=== PATIENT | male | born 1985 | race Caucasian/White ===

== ENCOUNTER 2016-05-24 11:17 | Emergency (ER) | payer OTHER ==
[2016-05-24 11:24] VITALS: BP 145/76; PULSE 73; TEMP 98; BMI 37.1
[2016-05-24] MEDS ORDERED: IBUPROFEN 600 MG TABLET (FP) PO ONE ×2 (11:51→11:55)
--- NOTE | 2016-05-24 11:56 | PDOC ---
History of Present Illness - General Chief Complaint: Injury Stated Complaint: INJURY TO LEFT MIDDLE FINGER Time Seen by Provider: 05/24/16 11:46 History Source: Patient Exam Limitations: No Limitations - History of Present Illness Initial Comments: 05/24/16 22:09 My Chief Complaint: Left third finger pain bend all the way back History of present illness: Pt. Is a 31-year-old male with a history of hyperlipidemia and GERD here today complaining of left middle finger pain when something he was holding at work started to fall causing his finger to bend backwards hyperextending it. Patient reports having pain in his left metacarpal joint and proximal aspect of his left middle finger. Patient does not have any noticeable swelling. Patient has slightly decreased range of motion at MCP joint. No gross deformity of hand noted. He reports that pain currently is an 8 out of 10 aching in nature. 05/24/16 22:12 Occurred: reports: just prior to arrival Severity: reports: moderate Upper Extremity Pain Location: left: 3rd finger (left MCP/PIP jt ) Method of Injury: reports: other (hyperflexed backwards ) Modifying Factors: improves with: None Extremity Pain Location - Extremity Pain Location Extremity Pain Locations: left: 3rd finger (mcp jt, pip jt ) Past History - Past Medical History Allergies/Adverse Reactions: Allergies Allergy/AdvReac Type Severity Reaction Status Date / Time No Known Allergies Allergy Verified 05/24/16 11:24 Home Medications: Ambulatory Orders Nebivolol [Bystolic -] 10 mg PO DAILY 04/28/12 Ibuprofen [Motrin -] 600 mg PO Q6H PRN #18 tablet 05/24/16 Anemia: No GI Disorders: Yes (GERD) Hypercholesterolemia: Yes Suicide Attempt (Hx): No - Surgical History Appendectomy: Yes - Immunization History Td Vaccination: Yes Immunization Up to Date: Yes - Psycho/Social/Smoking Cessation Hx Anxiety: Yes Suicidal Ideation: No Smoking Status: Yes Smoking History: Current every day smoker Years of Tobacco Use: 14 Have you smoked in the past 12 months: Yes Number of Cigarettes Smoked Daily: 20 Information on smoking cessation initiated: No Drug/Substance Use Hx: No Substance Use Type: None Review of Systems - Review of Systems Able to Perform ROS?: Yes Constitutional: No: Symptoms Reported HEENTM: No: Symptoms Reported Respiratory: No: Symptoms reported Cardiac (ROS): No: Symptoms Reported ABD/GI: No: Symptoms Reported Musculoskeletal: Yes: Joint Pain (left middle mcp jt, pip jt ). No: Joint Swelling Integumentary: No: Symptoms Reported Neurological: No: Symptoms reported *Physical Exam - Vital Signs Last Vital Signs Temp Pulse Resp BP Pulse Ox 98 F 73 18 145/76 98 05/24/16 11:21 05/24/16 11:21 05/24/16 11:21 05/24/16 11:21 05/24/16 11:21 - Physical Exam General Appearance: Yes: Appropriately Dressed Comments:: 05/24/16 11:56 05/24/16 11:56 left radial pulse 4 + Extremity: positive: Normal Capillary Refill, Normal Inspection, Tender (left middle mcp jt, pip jt ). negative: Normal Range of Motion, Swelling Integumentary: positive: Normal Color Neurologic: positive: Alert, Normal Response, Respond to painful stimul (left middle finger) Procedures - Consent Consent obtained: From Patient - Splinting Splint Location: Left: Finger (THIRD) Medical Decision Making - Medical Decision Making 05/24/16 22:13 Pt. Is a 31-year-old male with a history of hyperlipidemia and GERD here today complaining of left middle finger pain when something he was holding at work started to fall causing his finger to bend backwards hyperextending it. Patient reports having pain in his left metacarpal joint and proximal aspect of his left middle finger. Patient does not have any noticeable swelling. Patient has slightly decreased range of motion at MCP joint. No gross deformity of hand noted. He reports that pain currently is an 8 out of 10 aching in nature. 05/24/16 22:22 Left middle finger rule out fracture PLAN: xray left middle finger negative ibuprofen 600 mg po now than every 6 hrs prn finger splint ortho follow *DC/Admit/Observation/Transfer Diagnosis at time of Disposition: Strain of finger of left hand - Discharge Dispostion Disposition: HOME Condition at time of disposition: Stable - Prescriptions Prescriptions: Ibuprofen [Motrin -] 600 mg PO Q6H PRN #18 tablet PRN Reason: Pain - Referrals Referrals: Sebastien West MD [Staff Physician] - - Patient Instructions Additional Instructions: FOLLOW UP WITH Orthopedist as soon as possible for further evaluation Keep splint on during the day may take off and gently flex finger may take off at night Apply ice to left third finger every hour for 10 minutes while awake today and tomorrow Return to emergency room if symptoms worsen any numbness of finger Patient voiced understanding of discharge instructions and all questions were answered - Post Discharge Activity Work/School Note: Back to Work
== END 2016-05-24 12:32 | disposition home or self-care (01) ==
LOC: JERFT 11:17
PROC: 2W3KX1Z Immobilization of Left Finger using Splint (ICD-10-PCS; principal; 2016-05-24)
DX: S63.693A Other sprain of left middle finger, initial encounter (principal); X50.0XXA Overexertion from strenuous movement or load, initial encounter; X50.9XXA Other and unspecified overexertion or strenuous movements or postures, initial encounter; Y93.89 Activity, other specified; Y92.63 Factory as the place of occurrence of the external cause; Y99.0 Civilian activity done for income or pay; E78.5 Hyperlipidemia, unspecified; K21.9 Gastro-esophageal reflux disease without esophagitis
CPT/HCPCS: 73140-TC-LT; 99281-25

== ENCOUNTER 2016-08-22 20:50 | Emergency (ER) | payer SELFPAY ==
[2016-08-22 21:02] VITALS: BMI 35.6
--- NOTE | 2016-08-22 21:23 | PDOC ---
History of Present Illness - General History Source: Patient Exam Limitations: No Limitations - History of Present Illness Initial Comments: 08/22/16 21:32 The patient is a 31 year old male with significant past medical history of hypertension (no medications), hyperlipidemia (no medications), gerd who presents to the ED for 2 days of left upper quadrant pain. Patient describes pain as crampy and sharp. States he has a history of etoh use and normally after consuming a lot of alcohol he develops similar symptoms. States he drank a lot of alcohol 3 days ago and the following day he developed left upper quadrant pain. He also admits to drinking some alcohol today as well. Patient reports associated nausea and one episode of vomiting prior to arrival. Denies diarrhea. His last meal was earlier today. The patient denies fever, chills, cough, SOB, chest pain, and palpitations. Allergies: NKDA Social History: Current smoker (ppd), etoh use. Past Surgical History: appendectomy PCP: Dr. Tata De Dios <Maryam Cheng - Last Filed: 08/22/16 21:32> - General History Source: Patient <[email or web address] [email or web address] - Last Filed: 08/23/16 00:17> - General Chief Complaint: Pain, Acute Stated Complaint: ABDOMINAL PAIN Time Seen by Provider: 08/22/16 21:06 Past History <Maryam Cheng - Last Filed: 08/22/16 21:32> - Past Medical History Anemia: No GI Disorders: Yes (GERD) Hypercholesterolemia: Yes Suicide Attempt (Hx): No - Surgical History Appendectomy: Yes - Immunization History Td Vaccination: Yes Immunization Up to Date: Yes - Psycho/Social/Smoking Cessation Hx Anxiety: Yes Suicidal Ideation: No Smoking Status: Yes Smoking History: Current some day smoker Years of Tobacco Use: 14 Have you smoked in the past 12 months: Yes Number of Cigarettes Smoked Daily: 20 Information on smoking cessation initiated: No Drug/Substance Use Hx: No Substance Use Type: None <Thiago Castillo - Last Filed: 08/23/16 00:17> - Past Medical History Allergies/Adverse Reactions: Allergies Allergy/AdvReac Type Severity Reaction Status Date / Time No Known Allergies Allergy Verified 08/22/16 20:58 Home Medications: Ambulatory Orders Nebivolol [Bystolic -] 10 mg PO DAILY 02/25/13 Sucralfate [Carafate -] 1 gm PO QID #30 tablet 08/23/16 Review of Systems - Review of Systems Able to Perform ROS?: Yes Comments:: 08/22/16 21:32 CONSTITUTIONAL: Absent: fever, no chills, no fatigue EYES: Absent: visual changes ENT: Absent: ear pain, no sore throat CARDIOVASCULAR: Absent: chest pain, no palpitations RESPIRATORY: Absent: cough, no SOB GI: +left upper quadrant pain, nausea, vomiting Absent: no constipation, no diarrhea GENITOURINARY: Absent: dysuria, no frequency, no hematuria MUSCULOSKELETAL: Absent: back pain, no arthralgia, no myalgia SKIN: Absent: rash NEURO: Absent: headache <Maryam Cheng - Last Filed: 08/22/16 21:32> *Physical Exam - Vital Signs Last Vital Signs Temp Pulse Resp BP Pulse Ox 98.4 F 110 H 22 144/80 95 08/22/16 20:57 08/22/16 20:57 08/22/16 20:57 08/22/16 20:57 08/22/16 20:57 - Physical Exam Comments: 08/22/16 21:32 GENERAL: Well-appearing, well-nourished. No apparent distress. HEENT: Normocephalic, atraumatic. PERRL, EOM intact. CARDIOVASCULAR: Normal S1, S2. Regular rate and rhythm. PULMONARY: Clear to auscultation bilaterally. ABDOMEN: Soft, non-distended, moderate left upper quadrant tenderness. No rebound or guarding. EXTREMITIES: Normal ROM in all four extremities. No gross deformities. SKIN: Warm, dry. No rash NEUROLOGICAL: No focal neurological deficits. <Maryam Cheng - Last Filed: 08/22/16 21:32> - Vital Signs Last Vital Signs Temp Pulse Resp BP Pulse Ox 98.4 F 110 H 22 144/80 95 08/22/16 20:57 08/22/16 20:57 08/22/16 20:57 08/22/16 20:57 08/22/16 20:57 <Thiago Castillo - Last Filed: 08/23/16 00:17> ED Treatment Course - LABORATORY CBC & Chemistry Diagram: 08/22/16 22:00 08/22/16 22:00 <Thiago Castillo - Last Filed: 08/23/16 00:17> Medical Decision Making - Medical Decision Making 08/23/16 00:14 Dr. Castillo: The scribe's documentation has been prepared under my direction and personally reviewed by me in its entirery. I confirm that the note above accurately reflects all work, treatment, procedures, and medical decision making performed by me. <Thiago Castillo - Last Filed: 08/23/16 00:17> *DC/Admit/Observation/Transfer - Attestations Scribe Attestion: 08/22/16 21:32 Documentation prepared by Maryam Cheng, acting as esthetician and manager medical spa for Thiago Castillo MD/DO. <Maryam Cheng - Last Filed: 08/22/16 21:32> - Discharge Dispostion Admit: No <Thiago Castillo - Last Filed: 08/23/16 00:17> Diagnosis at time of Disposition: Abdominal pain Qualifiers: Abdominal location: left upper quadrant Qualified Code(s): R10.12 - Left upper quadrant pain GERD (gastroesophageal reflux disease) Qualifiers: Esophagitis presence: esophagitis presence not specified Qualified Code(s): K21.9 - Gastro-esophageal reflux disease without esophagitis - Discharge Dispostion Disposition: HOME Condition at time of disposition: Stable - Prescriptions Prescriptions: Sucralfate [Carafate -] 1 gm PO QID #30 tablet - Referrals Referrals: Tata De Dios [Primary Care Provider] - Kehinde Chavez MD [Staff Physician] - - Patient Instructions Printed Discharge Instructions: GERD Diet, DI for Gastroesophageal Reflux Disease (GERD) Additional Instructions: avoid excessive alcohol and greasy/ spicy foods. Take medication as directed. Return if any problems. - Post Discharge Activity Work/School Note: Back to Work
[2016-08-22] MEDS ORDERED: ONDANSETRON 4 MG/2 ML VIAL IVPUSH STA (21:25)
[2016-08-22] MEDS ORDERED: PANTOPRAZOLE SODIUM 40 MG in SODIUM CHLORIDE 100 ML IVPB ONE (21:25)
[2016-08-22] MEDS ORDERED: SODIUM CHLORIDE 1,000 ML IV STA (21:25)
[2016-08-22] MEDS ORDERED: PANTOPRAZOLE SODIUM 40 MG VIAL ONE (21:59)
[2016-08-22] MEDS ORDERED: ONDANSETRON 4 MG/2 ML VIAL ONE (21:59)
[2016-08-22 22:03] LABS: BASOPHIL 0.6 % (0-2.0); EOSINOPHIL 2.5 % (0-4.5); MCH 27.3 pg (25.7-33.7); MCHC 32.8 g/dl (32.0-35.9); MEAN CELL VOLUME 83.3 fl (80-96); MEAN PLT VOLUME 9.9 fl (7.5-11.1); NEUTROPHILS 73.8 % (42.8-82.8); PLATELET COUNT 154 K/MM3 (134-434); RDW 14.2 % (11.9-15.9); WHITE BLOOD COUNT 9.9 K/mm3 (4.0-10.0)
[2016-08-22 22:58] LABS: ALBUMIN 3.7 g/dl (3.4-5.0); ANION GAP 7 (8-16); CALCIUM 8.7 mg/dL (8.5-10.1); CO2 29 mmol/L (21-32); CREATININE 0.8 mg/dL (0.7-1.3); GLUCOSE,RANDOM 104 mg/dL (74-106); MAGNESIUM 2.2 mg/dL (1.8-2.4); SGOT/AST 40 U/L (15-37); SGPT/ALT 62 U/L (12-78)
[2016-08-22 22:59] LABS: ALK PHOS 91 U/L (45-117); BILIRUBIN,TOTAL 0.9 mg/dL (0.2-1.0); TOT PROT 7.1 g/dl (6.4-8.2)
[2016-08-22] MEDS ORDERED: SUCRALFATE 1 GM TABLET (FP) PO STA (23:23)
[2016-08-22] MEDS ORDERED: SUCRALFATE 1 GM TABLET (FP) ONE (23:39)
[2016-08-23 00:27] LABS: ACETONE SERUM NEGATIVE (NEGATIVE)
[2016-08-23 00:32] VITALS: BP 132/78; PULSE 88; TEMP 98.5
== END 2016-08-23 00:25 | disposition home or self-care (01) ==
LOC: JER 20:50
PROC: 3E033GC Introduction of Other Therapeutic Substance into Peripheral Vein, Percutaneous Approach (ICD-10-PCS; principal; 2016-08-22)
DX: R10.12 Left upper quadrant pain (principal); K21.9 Gastro-esophageal reflux disease without esophagitis; E78.00 Pure hypercholesterolemia, unspecified; F17.210 Nicotine dependence, cigarettes, uncomplicated
CPT/HCPCS: 80053; 82009; 83690; 83735; 85025; 99283-25

== ENCOUNTER 2017-01-30 09:34 | Emergency (ER) | payer SELFPAY ==
[2017-01-30 09:47] VITALS: BMI 35.5
[2017-01-30] MEDS ORDERED: MAG HYDROX/AL HYDROX/SIMETH 30 ML UNIT-DOSE CUP PO ONE (10:44)
--- NOTE | 2017-01-30 10:47 | PDOC ---
History of Present Illness - General Chief Complaint: Chest Pain Stated Complaint: CHEST PAIN Time Seen by Provider: 01/30/17 10:07 - History of Present Illness Initial Comments: 01/30/17 11:03 "31 year old male, with significant past medical history of HTN, HLD, and GERD, who presents to the emergency department complaining of intermittent left sided chest pain that started at 8:00am this morning, approximately 3 hours ago. The pain is not exertional, no pleuritic. He does not know of any exacerbating or alleviating factors and states that the pain comes and goes randomly. The patient notes that he has GERD and experiences epigastric pain and nausea every morning. Pt denies recent travel/immobilization. No leg swelling. No h/o DVT/ PE. Pt endorses daily alcohol use. Denies any recent cocaine use. Denies fever, chills. Denies leg swelling. Allergies: NKDA Surgical hx: appendectomy Social hx: Tobacco use (2ppd). Daily alcohol use. Marijuana use. Reports occasional cocaine use, but not recent. PCP: Dr. 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 " Past History - Past Medical History Allergies/Adverse Reactions: Allergies Allergy/AdvReac Type Severity Reaction Status Date / Time No Known Allergies Allergy Verified 01/30/17 09:47 Home Medications: Ambulatory Orders NK [No Known Home Medication] 01/30/17 Anemia: No COPD: No GI Disorders: Yes (GERD) Hypercholesterolemia: Yes - Surgical History Appendectomy: Yes - Immunization History Td Vaccination: Yes Immunization Up to Date: Yes - Suicide/Smoking/Psychosocial Hx Smoking Status: Yes Smoking History: Current every day smoker Years of Tobacco Use: 14 Have you smoked in the past 12 months: Yes Number of Cigarettes Smoked Daily: 15 Information on smoking cessation initiated: Yes 'Breaking Loose' booklet given: 01/30/17 Hx Alcohol Use: Yes (SOCIAL) Drug/Substance Use Hx: No Substance Use Type: None Review of Systems - Review of Systems Comments:: 01/30/17 11:05 "GENERAL/CONSTITUTIONAL: No fever or chills. No weakness. HEAD, EYES, EARS, NOSE AND THROAT: No change in vision. No ear pain or discharge. No sore throat. CARDIOVASCULAR: +CP, no SOB RESPIRATORY: No cough, wheezing, or hemoptysis. GASTROINTESTINAL: No nausea, vomiting, diarrhea or constipation. GENITOURINARY: No dysuria, frequency, or change in urination. MUSCULOSKELETAL: No joint or muscle swelling or pain. No neck or back pain. SKIN: No rash NEUROLOGIC: No headache, vertigo, loss of consciousness, or change in strength/ sensation. ENDOCRINE: No increased thirst. No abnormal weight change. HEMATOLOGIC/LYMPHATIC: No anemia, easy bleeding, or history of blood clots. ALLERGIC/IMMUNOLOGIC: No hives or skin allergy. " *Physical Exam - Vital Signs Last Vital Signs Temp Pulse Resp BP Pulse Ox 98.5 F 66 19 120/81 99 01/30/17 13:56 01/30/17 13:56 01/30/17 13:56 01/30/17 13:56 01/30/17 09:43 - Physical Exam Comments: 01/30/17 11:05 "GENERAL: Awake, alert, and fully oriented, in no acute distress HEAD: No signs of trauma EYES: PERRLA, EOMI, sclera anicteric, conjunctiva clear ENT: Auricles normal inspection, hearing grossly normal, nares patent, oropharynx clear without exudates. Moist mucosa NECK: Nontender, no stepoffs, Normal ROM, supple, no lymphadenopathy, JVD, or masses LUNGS: Breath sounds equal, clear to auscultation bilaterally. No wheezes, and no crackles HEART: Regular rate and rhythm, normal S1 and S2, no murmurs, rubs or gallops ABDOMEN: Soft, nontender, normoactive bowel sounds. No guarding, no rebound. No masses EXTREMITIES: Normal range of motion, no edema. No clubbing or cyanosis. No cords, erythema, or tenderness NEUROLOGICAL: Cranial nerves II through XII intact. 5/5 strength and sensation in all extremities, Normal speech, normal gait SKIN: Warm, Dry, normal turgor, no rashes or lesions noted. " Heart Score/ECG Review - History History: Slightly suspicious - Electrocardiogram EKG: Normal - Age Age: </= 45 - Risk Factors Risk Factors Heart Score: Yes Hx Hypercholesterolemia, Yes Hx Hypertension Based on the list above the patient has:: 1-2 risk factors - Troponin Troponin: </= normal limit - Score Heart Score - Total: 1 - ECG Impressions Comment:: 01/30/17 11:16 NSR, no TAMEKA/STDs, no TWIs, axis wnl, intervals wnl ED Treatment Course - LABORATORY CBC & Chemistry Diagram: 01/30/17 11:06 01/30/17 12:02 - ADDITIONAL ORDERS Additional order review: Laboratory Results 01/30/17 01/30/17 01/30/17 12:02 11:06 11:06 Sodium 141 Cancelled Potassium 4.2 Cancelled Chloride 107 Cancelled Carbon Dioxide 26 Cancelled Anion Gap 8 Cancelled BUN 12 Cancelled Creatinine 1.1 D Cancelled Creat Clearance w eGFR > 60 Cancelled Random Glucose 84 Cancelled Calcium 8.8 Cancelled Total Bilirubin 0.7 D Cancelled AST 44 H Cancelled ALT 76 D Cancelled Alkaline Phosphatase 88 Cancelled Creatine Kinase 261 Creatine Kinase Index 0.6 CK-MB (CK-2) 1.712 Troponin I < 0.02 Total Protein 7.5 Cancelled Albumin 3.9 Cancelled Lipase 127 Cancelled Opiates Screen Negative Methadone Screen Negative Barbiturate Screen Negative Phencyclidine Screen Negative Ur Amphetamines Screen Negative MDMA (Ecstasy) Screen Negative Benzodiazepines Screen Negative Cocaine Screen Negative U Marijuana (THC) Screen Positive 01/30/17 11:06 Sodium Potassium Chloride Carbon Dioxide Anion Gap BUN Creatinine Creat Clearance w eGFR Random Glucose Calcium Total Bilirubin AST ALT Alkaline Phosphatase Creatine Kinase Cancelled Creatine Kinase Index CK-MB (CK-2) Troponin I Cancelled Total Protein Albumin Lipase Opiates Screen Methadone Screen Barbiturate Screen Phencyclidine Screen Ur Amphetamines Screen MDMA (Ecstasy) Screen Benzodiazepines Screen Cocaine Screen U Marijuana (THC) Screen 01/30/17 11:06 RBC 5.73 H MCV 83.2 MCHC 33.4 RDW 14.7 MPV 10.5 Neutrophils % 66.0 Lymphocytes % 22.5 D Monocytes % 7.0 Eosinophils % 3.8 Basophils % 0.7 - RADIOLOGY Radiology Studies Ordered: Category Date Time Status CHEST PA & LAT [RAD] Stat Radiology 01/30/17 10:43 Completed - Medications Given in the ED: ED Medications Discontinued Medications Generic Name Dose Route Start Last Admin Trade Name Freq PRN Reason Stop Dose Admin Al Hydroxide/Mg Hydroxide 30 ml 01/30/17 10:44 01/30/17 11:12 Mylanta Oral Suspension - PO 01/30/17 10:45 30 ml ONCE ONE Administration Famotidine/Sodium Chloride 20 mg in 50 mls @ 100 mls/hr 01/30/17 11:30 11:16 Pepcid 20 Mg Premixed Ivpb - IVPB 01/30/17 11:59 100 mls/hr ONCE ONE Administration Medical Decision Making - Medical Decision Making 01/30/17 10:46 31 M with intermittent chest pain that started at 8AM today. Pain is atypical in nature. Pt with PERC score 0, making PE unlikely. Pain may be related to gastritis as pt has h/o GERD. - Labs, trop - EKG - CXR - Utox - GI cocktail 01/30/17 13:01 CBC,CMP WBC 7.6 K/mm3 (4.0-10.0) 01/30/17 11:06 RBC 5.73 M/mm3 (4.00-5.60) H 01/30/17 11:06 Hgb 15.9 GM/dL (11.7-16.9) D 01/30/17 11:06 Hct 47.6 % (35.4-49) 01/30/17 11:06 MCV 83.2 fl (80-96) 01/30/17 11:06 MCH 27.8 pg (25.7-33.7) 01/30/17 11:06 MCHC 33.4 g/dl (32.0-35.9) 01/30/17 11:06 RDW 14.7 % (11.9-15.9) 01/30/17 11:06 Plt Count 211 K/MM3 (134-434) D 01/30/17 11:06 MPV 10.5 fl (7.5-11.1) 01/30/17 11:06 Neutrophils % 66.0 % (42.8-82.8) 01/30/17 11:06 Lymphocytes % 22.5 % (8-40) D 01/30/17 11:06 Monocytes % 7.0 % (3.8-10.2) 01/30/17 11:06 Eosinophils % 3.8 % (0-4.5) 01/30/17 11:06 Basophils % 0.7 % (0-2.0) 01/30/17 11:06 Sodium 141 mmol/L (136-145) 01/30/17 12:02 Potassium 4.2 mmol/L (3.5-5.1) 01/30/17 12:02 Chloride 107 mmol/L (98-107) 01/30/17 12:02 Carbon Dioxide 26 mmol/L (21-32) 01/30/17 12:02 Anion Gap 8 (8-16) 01/30/17 12:02 BUN 12 mg/dL (7-18) 01/30/17 12:02 Creatinine 1.1 mg/dL (0.7-1.3) D 01/30/17 12:02 Creat Clearance w eGFR > 60 (>60) 01/30/17 12:02 Random Glucose 84 mg/dL (74-106) 01/30/17 12:02 Calcium 8.8 mg/dL (8.5-10.1) 01/30/17 12:02 Total Bilirubin 0.7 mg/dL (0.2-1.0) D 01/30/17 12:02 AST 44 U/L (15-37) H 01/30/17 12:02 ALT 76 U/L (12-78) D 01/30/17 12:02 Alkaline Phosphatase 88 U/L (45-117) 01/30/17 12:02 Creatine Kinase 261 IU/L (39-308) 01/30/17 12:02 Troponin I < 0.02 ng/ml (0.00-0.05) 01/30/17 12:02 Total Protein 7.5 g/dl (6.4-8.2) 01/30/17 12:02 Albumin 3.9 g/dl (3.4-5.0) 01/30/17 12:02 Lipase 127 U/L (73-393) 01/30/17 12:02 CXR clear Trop negative. Pt reassessed s/p GI meds, pain now resolved. Pt well appearing with normal vitals. Tolerating PO. Clinically stable for DC. I discussed the physical exam findings, ancillary test results and final diagnoses with the patient. I answered all of the patient's questions. The patient was satisfied with the care received and felt comfortable with the discharge plan and treatment plan. The patient agrees to follow up with the primary care physician within 24-72 hours. *DC/Admit/Observation/Transfer Diagnosis at time of Disposition: Chest pain - Discharge Dispostion Disposition: HOME Condition at time of disposition: Stable - Referrals Referrals: Gilson Cervantes MD [Staff Physician] - - Patient Instructions Printed Discharge Instructions: DI for Atypical Chest Pain Additional Instructions: Please understand that no ER visit is complete without re-evaluation. Please call your primary doctor within 24 hours to set up a follow up appointment. Call the number provided to make an appointment with our internal medicine group. If you experience any worsening symptoms, chest pain, shortness of breath, or any other concerning symptoms, return to the ER immediately. - Post Discharge Activity Forms/Work/School Notes: Back to Work - Attestations Physician Attestion: 01/30/17 13:03 I, Dr. Filiberto Andrew MD, attest that this document has been prepared under my direction and personally reviewed by me in its entirety. I further attest, that it accurately reflects all work, treatment, procedures and medical decision -making performed by me.
[2017-01-30] MEDS ORDERED: MAG HYDROX/AL HYDROX/SIMETH 30 ML UNIT-DOSE CUP ONE (11:07)
[2017-01-30 11:12] LABS: BASOPHIL 0.7 % (0-2.0); EOSINOPHIL 3.8 % (0-4.5); MCH 27.8 pg (25.7-33.7); MCHC 33.4 g/dl (32.0-35.9); MEAN CELL VOLUME 83.2 fl (80-96); MEAN PLT VOLUME 10.5 fl (7.5-11.1); PLATELET COUNT 211 K/MM3 (134-434); RDW 14.7 % (11.9-15.9); WHITE BLOOD COUNT 7.6 K/mm3 (4.0-10.0)
[2017-01-30 11:28] LABS: URINE MARIJUANA THC POSITIVE ng/ml (CUTOFF=50)
[2017-01-30] MEDS ORDERED: FAMOTIDINE 20 MG/50 ML IVPB 20 MG/50 ML MG IVPB ONE (11:30)
[2017-01-30 12:43] LABS: ALBUMIN 3.9 g/dl (3.4-5.0); ANION GAP 8 (8-16); BILIRUBIN,TOTAL 0.7 mg/dL (0.2-1.0); CALCIUM 8.8 mg/dL (8.5-10.1); CO2 26 mmol/L (21-32); CREATININE 1.1 mg/dL (0.7-1.3); GLUCOSE,RANDOM 84 mg/dL (74-106); SGOT/AST 44 U/L (15-37); SGPT/ALT 76 U/L (12-78); TOT PROT 7.5 g/dl (6.4-8.2)
[2017-01-30 12:46] LABS: ALK PHOS 88 U/L (45-117); CPK 261 IU/L (39-308); TROPONIN I < 0.02 ng/ml (0.00-0.05)
[2017-01-30 13:57] VITALS: BP 120/81; PULSE 66; TEMP 98.5
--- NOTE | 2017-01-31 12:59 | EKG ---
Test Reason : Blood Pressure : / mmHG Vent. Rate : 061 BPM Atrial Rate : 061 BPM P-R Int : 156 ms QRS Dur : 094 ms QT Int : 400 ms P-R-T Axes : 054 -02 002 degrees QTc Int : 402 ms NORMAL SINUS RHYTHM NORMAL ECG WHEN COMPARED WITH ECG OF 13-MAR-2012 16:06, NO SIGNIFICANT CHANGE WAS FOUND Confirmed by BARRETT DELACRUZ MD ([id number]) on 01/31/2017 12:59:02 PM Referred By: Confirmed By:BARRETT DELACRUZ MD
== END 2017-01-30 13:59 | disposition home or self-care (01) ==
LOC: JER 09:34
PROC: 3E033GC Introduction of Other Therapeutic Substance into Peripheral Vein, Percutaneous Approach (ICD-10-PCS; principal; 2017-01-30)
DX: R07.89 Other chest pain (principal); I10 Essential (primary) hypertension; E78.00 Pure hypercholesterolemia, unspecified; K21.9 Gastro-esophageal reflux disease without esophagitis
CPT/HCPCS: 36415; 71020-TC; 80053; 80307; 82550; 82553; 83690; 84484; 85025; 93005; 93010; 99285-25

== ENCOUNTER 2017-05-03 23:55 | Emergency (ER) | payer SELFPAY ==
[2017-05-04] MEDS ORDERED: SODIUM CHLORIDE 1,000 ML IV STA (00:34)
[2017-05-04 00:46] VITALS: BP 134/79; PULSE 71; TEMP 98.4; BMI 35.5
[2017-05-04 00:52] LABS: BASO % 0.6 % (0-2.0); EOS % 1.5 % (0-4.5); HEMOGLOBIN 14.7 GM/dL (11.7-16.9); LYMPH % 13.8 % (8-40); MCH 28.4 pg (25.7-33.7); MCHC 34.1 g/dl (32.0-35.9); MEAN CELL VOLUME 83.4 fl (80-96); MEAN PLT VOLUME 10.1 fl (7.5-11.1); MONO % 8.3 % (3.8-10.2); NEUT % 75.8 % (42.8-82.8); PLATELET COUNT 138 K/MM3 (134-434); RBC 5.16 M/mm3 (4.00-5.60); RDW 14.5 % (11.9-15.9); WHITE BLOOD COUNT 8.8 K/mm3 (4.0-10.0)
[2017-05-04 00:54] LABS: URINE APPEARANCE CLEAR; URINE BILIRUBIN NEGATIVE (NEGATIVE); URINE BLOOD NEGATIVE (NEGATIVE); URINE COLOR LTYELLOW; URINE GLUCOSE (UA) NEGATIVE (NEGATIVE); URINE KETONE NEGATIVE (NEGATIVE); URINE LEUK ESTERASE TRACE (NEGATIVE); URINE NITRITE NEGATIVE (NEGATIVE); URINE PROTEIN NEGATIVE (NEGATIVE)
[2017-05-04 01:01] LABS: EPI CELLS RARE /HPF (FEW); URINE MUCUS RARE
--- NOTE | 2017-05-04 01:07 | PDOC ---
*Physical Exam - Vital Signs Last Vital Signs Temp Pulse Resp BP Pulse Ox 98.4 F 71 18 134/79 98 05/04/17 00:39 05/04/17 00:39 05/04/17 00:39 05/04/17 00:39 05/04/17 00:39 ED Treatment Course - LABORATORY CBC & Chemistry Diagram: 05/04/17 00:39 05/04/17 00:39 - ADDITIONAL ORDERS Additional order review: Laboratory Results 05/04/17 00:39 Urine Color Ltyellow Urine Appearance Clear Urine pH 6.0 Ur Specific [place] 1.017 Urine Protein Negative Urine Glucose (UA) Negative Urine Ketones Negative Urine Blood Negative Urine Nitrite Negative Urine Bilirubin Negative Urine Urobilinogen 2.0 Ur Leukocyte Esterase Trace Urine WBC (Auto) 7 Urine RBC (Auto) <1 Ur Epithelial Cells Rare Urine Mucus Rare 05/04/17 00:39 RBC 5.16 MCV 83.4 MCHC 34.1 RDW 14.5 MPV 10.1 Neutrophils % 75.8 Lymphocytes % 13.8 D Monocytes % 8.3 Eosinophils % 1.5 Basophils % 0.6 Medical Decision Making - Medical Decision Making 05/04/17 01:07 Pt seen by the Advanced Practice Provider under my direct supervision Ancillary studies reviewed I agree with plan as outlined by the Advanced Practice Provider RIAN Pal *DC/Admit/Observation/Transfer - Discharge Dispostion Condition at time of disposition: Fair - Referrals Referrals: ON STAFF,NOT [Primary Care Provider] - - Patient Instructions - Post Discharge Activity
--- NOTE | 2017-05-04 01:09 | PDOC ---
History of Present Illness - General Chief Complaint: Pain, Acute Stated Complaint: PAIN Time Seen by Provider: 05/04/17 00:34 History Source: Patient Exam Limitations: No Limitations - History of Present Illness Travel History: No Initial Comments: 05/04/17 01:06 Best Contact: Pmhx:N/A Pshx: 2011: Laparoscopic appendectomy Allergies: NKDA 32-year-old male presents to the emergency department complaining of 7/10 sharp nonradiating intermittent left upper quadrant/left lower quadrant abdominal pain times approximately one month. Patient states the pain got worse over the past 3 hours while resting at home. Pain is exacerbated when sitting and there are no alleviating factors. Patient denies fever, chills, nausea/vomiting, chest pain, shortness of breath, flank pains, urinary symptoms: Frequency/ urgency/hesitancy, hematuria. 05/04/17 01:15 Past History - Past Medical History Allergies/Adverse Reactions: Allergies Allergy/AdvReac Type Severity Reaction Status Date / Time No Known Allergies Allergy Verified 05/04/17 00:46 Home Medications: Ambulatory Orders NK [No Known Home Medication] 01/30/17 Anemia: No COPD: No GI Disorders: Yes (GERD) HTN: Yes Hypercholesterolemia: Yes - Surgical History Appendectomy: Yes - Immunization History Td Vaccination: Yes Immunization Up to Date: Yes - Suicide/Smoking/Psychosocial Hx Smoking Status: Yes Smoking History: Never smoked Years of Tobacco Use: 14 Have you smoked in the past 12 months: Yes Number of Cigarettes Smoked Daily: 15 Information on smoking cessation initiated: No 'Breaking Loose' booklet given: 01/30/17 Hx Alcohol Use: No Drug/Substance Use Hx: No Substance Use Type: None Review of Systems - Review of Systems Able to Perform ROS?: Yes Comments:: 05/04/17 01:04 CONSTITUTIONAL: Absent: fever, chills, diaphoresis, generalized weakness, malaise, loss of appetite HEENT: Absent: rhinorrhea, nasal congestion, throat pain, throat swelling, difficulty swallowing, mouth swelling, ear pain, eye pain, visual Changes CARDIOVASCULAR: Absent: chest pain, loss of consciousness, palpitations, irregular heart rate, peripheral edema RESPIRATORY: Absent: cough, shortness of breath, dyspnea with exertion, orthopnea, wheezing, stridor, hemoptysis GASTROINTESTINAL: +LLQ/LUQ pain Absent: abdominal distension, nausea, vomiting, diarrhea, constipation, melena , hematochezia GENITOURINARY: Absent: dysuria, frequency, urgency, hesitancy, hematuria, flank pain, genital pain MUSCULOSKELETAL: Absent: myalgia, arthralgia, joint swelling SKIN: Absent: rash, itching, pallor Is the patient limited Luxembourger proficient: No *Physical Exam - Vital Signs Last Vital Signs Temp Pulse Resp BP Pulse Ox 98.4 F 71 18 134/79 98 05/04/17 00:39 05/04/17 00:39 05/04/17 00:39 05/04/17 00:39 05/04/17 00:39 - Physical Exam Comments: 05/04/17 01:04 GENERAL: Well developed, well nourished. Awake and alert. No acute distress. HEENT: Normocephalic, atraumatic. PERRLA, EOMI. No conjunctival pallor. Sclera are non- icteric. Moist mucous membranes. Oropharynx is clear. NECK: Supple. Full ROM. No JVD. Carotid pulses 2+ and symmetric, without bruits. No thyromegaly. No lymphadenopathy. CARDIOVASCULAR: Regular rate and rhythm. No murmurs, rubs, or gallops. Distal pulses are 2+ and symmetric. PULMONARY: No evidence of respiratory distress. Lungs clear to auscultation bilaterally. No wheezing, rales or rhonchi. ABDOMINAL: +LUQ/LLQ abdominal pain Soft. Non-distended. No rebound or guarding. No organomegaly. Normoactive bowel sounds. MUSCULOSKELETAL Normal range of motion at all joints. No bony deformities or tenderness. No CVA tenderness. EXTREMITIES: No cyanosis. No clubbing. No edema. No calf tenderness. SKIN: Warm and dry. Normal capillary refill. No rashes. No jaundice. ED Treatment Course - LABORATORY CBC & Chemistry Diagram: 05/04/17 00:39 05/04/17 00:39 - ADDITIONAL ORDERS Additional order review: Laboratory Results 05/04/17 00:39 Urine Color Ltyellow Urine Appearance Clear Urine pH 6.0 Ur Specific [place] 1.017 Urine Protein Negative Urine Glucose (UA) Negative Urine Ketones Negative Urine Blood Negative Urine Nitrite Negative Urine Bilirubin Negative Urine Urobilinogen 2.0 Ur Leukocyte Esterase Trace Urine WBC (Auto) 7 Urine RBC (Auto) <1 Ur Epithelial Cells Rare Urine Mucus Rare 05/04/17 00:39 RBC 5.16 MCV 83.4 MCHC 34.1 RDW 14.5 MPV 10.1 Neutrophils % 75.8 Lymphocytes % 13.8 D Monocytes % 8.3 Eosinophils % 1.5 Basophils % 0.6 - RADIOLOGY Radiology Studies Ordered: Category Date Time Status ABDOMEN & PELVIS CT WITH CONTR [CT] Stat CT Scan 05/04/17 00:34 Ordered Radiograph Interpretation: 05/04/17 01:07 CT abd/pelvis with po/iv contrast: Preliminary impression: Mild nonspecific wall thickening of the descending and sigmoid colon most likely due to mild infectious colitis or mild acute diverticulitis. Mild hepatomegaly and steatosis most likely associated with insulin resistant and metabolic syndrome *DC/Admit/Observation/Transfer Diagnosis at time of Disposition: Acute diverticulitis - Discharge Dispostion Condition at time of disposition: Stable Admit: No - Referrals Referrals: ON STAFF,NOT [Primary Care Provider] - Gini Pearson MD [Staff Physician] - - Patient Instructions Printed Discharge Instructions: DI for Diverticulitis Additional Instructions: You had a CAT scan of your abdomen and pelvis with oral and intravenous contrast this evening The following is a preliminary impression of your CAT scan: Mild nonspecific wall thickening of the descending and sigmoid colon most likely due to mild infectious colitis or mild acute diverticulitis. Mild hepatomegaly and steatosis most likely associated with insulin resistance and metabolic syndrome Please take your to antibiotics as prescribed/Levaquin and Flagyl Follow-up with the ortho rn S listed on your discharge Return to the emergency department for severe/persistent or worsening symptoms - Post Discharge Activity
[2017-05-04 01:18] LABS: ALBUMIN 3.8 g/dl (3.4-5.0); ANION GAP 10 (8-16); BILIRUBIN,TOTAL 0.8 mg/dL (0.2-1.0); BLOOD UREA NITROGEN 11 mg/dL (7-18); CALCIUM 8.9 mg/dL (8.5-10.1); CHLORIDE 103 mmol/L (98-107); CO2 26 mmol/L (21-32); CREATININE 0.9 mg/dL (0.7-1.3); GLUCOSE,RANDOM 91 mg/dL (74-106); POTASSIUM 3.6 mmol/L (3.5-5.1); SGOT/AST 43 U/L (15-37); SGPT/ALT 97 U/L (12-78); SODIUM 139 mmol/L (136-145); TOT PROT 7.7 g/dl (6.4-8.2)
[2017-05-04 01:19] LABS: ALK PHOS 89 U/L (45-117)
== END 2017-05-04 06:24 | disposition home or self-care (01) ==
LOC: SUPCPDRO 23:55 → JER 23:55
PROC: 3E03329 Introduction of Other Anti-infective into Peripheral Vein, Percutaneous Approach (ICD-10-PCS; principal; 2017-05-03)
PROC: 3E0337Z Introduction of Electrolytic and Water Balance Substance into Peripheral Vein, Percutaneous Approach (ICD-10-PCS; 2017-05-03)
DX: K57.92 Diverticulitis of intestine, part unspecified, without perforation or abscess without bleeding (principal); K21.9 Gastro-esophageal reflux disease without esophagitis; I10 Essential (primary) hypertension; E78.00 Pure hypercholesterolemia, unspecified; Z87.891 Personal history of nicotine dependence
CPT/HCPCS: 36415; 74177-TC; 80053; 81003; 81015; 85025; 99282-25

== ENCOUNTER 2017-05-06 10:07 | Emergency (ER) | payer SELFPAY ==
[2017-05-06 10:23] VITALS: BMI 35.5
--- NOTE | 2017-05-06 10:37 | PDOC ---
History of Present Illness - General Chief Complaint: Pain, Acute Stated Complaint: REVISIT, PAIN Time Seen by Provider: 05/06/17 10:37 - History of Present Illness Initial Comments: 05/06/17 10:49 Mr. Reid is a 32 yo male w/ pmh of HTN and recent (3/2) diagnosis of diverticulitis who presents for evaluation after he was unable to make timely appointment with provided GI doctor and was told to go to ER if he was still having pain. He reports his pain has continued although he has taken proscribed ABX as written. He has no other complaints at this time. The patient denies chest pain, shortness of breath, headache and dizziness. Denies fever, chills, nausea, vomit, diarrhea and constipation. Denies dysuria, frequency, urgency and hematuria. Allergies: NKDA Past History - Past Medical History Allergies/Adverse Reactions: Allergies Allergy/AdvReac Type Severity Reaction Status Date / Time No Known Allergies Allergy Verified 05/06/17 10:19 Home Medications: Ambulatory Orders levoFLOXacin [Levaquin -] 500 mg PO BID #20 tablet 05/04/17 metroNIDAZOLE [Flagyl -] 500 mg PO TID #30 tablet 05/04/17 Anemia: No COPD: No GI Disorders: Yes (GERD) HTN: Yes Hypercholesterolemia: Yes - Surgical History Appendectomy: Yes - Immunization History Td Vaccination: Yes Immunization Up to Date: Yes - Suicide/Smoking/Psychosocial Hx Smoking Status: Yes Smoking History: Never smoked Years of Tobacco Use: 14 Have you smoked in the past 12 months: Yes Number of Cigarettes Smoked Daily: 5 Information on smoking cessation initiated: No 'Breaking Loose' booklet given: 01/30/17 Hx Alcohol Use: No Drug/Substance Use Hx: No Substance Use Type: None Review of Systems - Review of Systems Comments:: 05/06/17 10:51 GENERAL/CONSTITUTIONAL: No fever or chills. No weakness. HEAD, EYES, EARS, NOSE AND THROAT: No change in vision. No ear pain or discharge. No sore throat. CARDIOVASCULAR: No chest pain or shortness of breath RESPIRATORY: No cough, wheezing, or hemoptysis. GASTROINTESTINAL: +Continued diarrhea that has improved slightly since last visit. RUQ and LUQ abdominal pain that he reports is more or less constant. No nausea, vomiting, or constipation. GENITOURINARY: No dysuria, frequency, or change in urination. MUSCULOSKELETAL: No joint or muscle swelling or pain. No neck or back pain. SKIN: No rash NEUROLOGIC: No headache, vertigo, loss of consciousness, or change in strength/ sensation. ENDOCRINE: No increased thirst. No abnormal weight change HEMATOLOGIC/LYMPHATIC: No anemia, easy bleeding, or history of blood clots. ALLERGIC/IMMUNOLOGIC: No hives or skin allergy. *Physical Exam - Vital Signs Last Vital Signs Temp Pulse Resp BP Pulse Ox 98.4 F 69 19 133/66 99 05/06/17 10:19 05/06/17 10:19 05/06/17 10:19 05/06/17 10:19 05/06/17 10:19 - Physical Exam Comments: 05/06/17 10:51 GENERAL: Awake, alert, and fully oriented, in no acute distress HEAD: No signs of trauma, normocephalic, atraumatic EYES: PERRLA, EOMI, sclera anicteric, conjunctiva clear ENT: Auricles normal inspection, hearing grossly normal, nares patent, oropharynx clear without exudates. Moist mucosa NECK: Normal ROM, supple, no lymphadenopathy, JVD, or masses LUNGS: No distress, speaks full sentences, clear to auscultation bilaterally HEART: Regular rate and rhythm, normal S1 and S2, no murmurs, rubs or gallops, peripheral pulses normal and equal bilaterally. ABDOMEN: +TTP in LUQ and RUQ. Soft, normoactive bowel sounds. No guarding, no rebound. No masses EXTREMITIES: Normal inspection, Normal range of motion, no edema. No clubbing or cyanosis. NEUROLOGICAL: Cranial nerves II through XII grossly intact. Normal speech, normal gait, no focal sensorimotor deficits SKIN: Warm, Dry, normal turgor, no rashes or lesions noted. ED Treatment Course - LABORATORY CBC & Chemistry Diagram: 05/06/17 11:10 05/06/17 11:10 Medical Decision Making - Medical Decision Making 05/06/17 13:36 Mr. Reid is a 32 yo male w/ pmh as described who presents w/ continued abdominal pain after inability to schedule GI appointment. Patient evaluated for exacerbation of diverticulitis - labs evaluated as below. Patient reporting relief from symptoms after GI cocktail, morphine, and fluid administration. Discharging patient to home w/ instructions to f/u with GI for further evaluation per original presentation plan. Patient verbalized agreement and understanding and will comply. Laboratory Results - last 24 hr 05/06/17 05/06/17 11:10 11:10 WBC 7.6 RBC 5.13 Hgb 14.7 Hct 43.0 MCV 83.8 MCH 28.7 MCHC 34.3 RDW 14.3 Plt Count 144 MPV 9.9 Neutrophils % 66.2 Lymphocytes % 20.0 D Monocytes % 8.8 Eosinophils % 4.3 D Basophils % 0.7 Sodium 141 Potassium 4.1 Chloride 109 H Carbon Dioxide 26 Anion Gap 6 L BUN 15 D Creatinine 1.0 Creat Clearance w eGFR > 60 Random Glucose 94 Calcium 8.6 Total Bilirubin 0.5 D AST 43 H ALT 99 H Alkaline Phosphatase 89 Total Protein 7.0 Albumin 3.7 Lipase 144 *DC/Admit/Observation/Transfer Diagnosis at time of Disposition: Acute diverticulitis - Discharge Dispostion Disposition: HOME - Referrals Referrals: Gini Pearson MD [Staff Physician] - Alex Christiansen MD [Staff Physician] - Faizan Benavides DO [Staff Physician] - Vasquez Del Real MD [Staff Physician] - - Patient Instructions Printed Discharge Instructions: DI for Diverticulitis Additional Instructions: Please return if any increased pain, fever, or other concerning symptoms. Follow -up with Gastroenterology specialist as discussed for further evaluation. - Post Discharge Activity Forms/Work/School Notes: Back to Work
--- NOTE | 2017-05-06 10:52 | PDOC ---
Attending Attestation - Resident Resident Name: Dexter Love - ED Attending Attestation I have performed the following: I have examined & evaluated the patient, The case was reviewed & discussed with the resident, I agree w/resident's findings & plan, Exceptions are as noted - HPI HPI: 05/06/17 11:02 32y M hx of htn, was dx on 05/03 with coliits started with outpatient abx, was going to GI who told him that they wont be able to see him for months and told him that if he was still in pain he should come to the ED. Pt endorses persistent pain tot eh LUQ and now in the RUQ. His pain is a bit worse than saturday when he was last seen. The patient denies any chest pain, shortness of breath, cough, fevers he does endorse some chills. pts ct from 05/04 was read as no gall stones, thickening of the proximal sigmoid colon and with descending colon but without any gross sourrounding inflmamatory changes. no complications such as free air/collections noted. GENERAL: The patient is awake, alert, and fully oriented, Nontoxic but uncomfortable appearing HEAD: Normocephalic, atraumatic. EYES: extraocular movements intact, . LUNGS: Breath sounds equal, clear to auscultation bilaterally. No wheezes, no rhonchi, no rales. HEART: Regular rate and rhythm, normal S1 and S2 without murmur, rub or gallop. ABDOMEN: mild diffuse tenderness in the RUQ/LUQ, mild rebound, no guarding EXTREMITIES: Normal range of motion, no edema. No clubbing or cyanosis. No cords, erythema, or tenderness. NEUROLOGICAL: No facial assymetry, Normal speech, moving all 4 extremities spontaneously and symmetrically PSYCH: Normal mood, normal affect. SKIN: Warm, Dry, normal turgor, - Physicial Exam PE: 05/06/17 19:45 see above - Medical Decision Making 05/06/17 11:32 Persistence of abdominal pain after diagnosis of diverticulitis. The patient's pain is a bit atypical of diverticulitis as it is now radiating to the right upper quadrant Will obtain blood work will obtain a flat and upright to rule out any free air Will give the patient morphine, fluids Will reassess 05/06/17 14:46 pt feeling significantly better labs reviewed unremarkble abd sof tnontender on reassessment. wlil dc to finish her abx and with pmd fu return precautions were discussed
[2017-05-06] MEDS ORDERED: KETOROLAC TROMETHAMINE 30 MG/1 ML VIAL IVPUSH ONE (10:57)
[2017-05-06] MEDS ORDERED: SODIUM CHLORIDE 1,000 ML IV STA (10:58)
[2017-05-06] MEDS ORDERED: FAMOTIDINE 20 MG/50 ML IVPB 20 MG in PREMIX 50 IVPB ONE (11:20)
[2017-05-06] MEDS ORDERED: morphine CARPU-JECT 4 MG/1 ML DISP.SYRIN IVPUSH ONE (11:20)
[2017-05-06] MEDS ORDERED: MAG HYDROX/AL HYDROX/SIMETH 355 ML ORAL.SUSP PO ONE (11:20)
[2017-05-06] MEDS ORDERED: MORPHINE SULFATE 10 MG/1 ML *VIAL ONE (11:24)
[2017-05-06] MEDS ORDERED: FAMOTIDINE 20 MG/50 ML IVPB 20 MG/50 ML MG IVPB ONE (11:25)
[2017-05-06] MEDS ORDERED: MAG HYDROX/AL HYDROX/SIMETH 30 ML UNIT-DOSE CUP ONE (11:25)
[2017-05-06 11:30] LABS: BASO % 0.7 % (0-2.0); EOS % 4.3 % (0-4.5); HEMOGLOBIN 14.7 GM/dL (11.7-16.9); MCH 28.7 pg (25.7-33.7); MCHC 34.3 g/dl (32.0-35.9); MEAN CELL VOLUME 83.8 fl (80-96); MEAN PLT VOLUME 9.9 fl (7.5-11.1); MONO % 8.8 % (3.8-10.2); NEUT % 66.2 % (42.8-82.8); PLATELET COUNT 144 K/MM3 (134-434); RBC 5.13 M/mm3 (4.00-5.60); RDW 14.3 % (11.9-15.9); WHITE BLOOD COUNT 7.6 K/mm3 (4.0-10.0)
[2017-05-06 11:42] LABS: ALBUMIN 3.7 g/dl (3.4-5.0); ALK PHOS 89 U/L (45-117); ANION GAP 6 (8-16); BILIRUBIN,TOTAL 0.5 mg/dL (0.2-1.0); BLOOD UREA NITROGEN 15 mg/dL (7-18); CALCIUM 8.6 mg/dL (8.5-10.1); CHLORIDE 109 mmol/L (98-107); CO2 26 mmol/L (21-32); GLUCOSE,RANDOM 94 mg/dL (74-106); LIPASE 144 U/L (73-393); POTASSIUM 4.1 mmol/L (3.5-5.1); SGOT/AST 43 U/L (15-37); SGPT/ALT 99 U/L (12-78); SODIUM 141 mmol/L (136-145)
[2017-05-06 13:10] VITALS: TEMP 98.2
[2017-05-06 14:50] VITALS: BP 121/74; PULSE 77
== END 2017-05-06 14:20 | disposition home or self-care (01) ==
LOC: JER 10:07
PROC: 3E033NZ Introduction of Analgesics, Hypnotics, Sedatives into Peripheral Vein, Percutaneous Approach (ICD-10-PCS; principal; 2017-05-06)
PROC: 3E0337Z Introduction of Electrolytic and Water Balance Substance into Peripheral Vein, Percutaneous Approach (ICD-10-PCS; 2017-05-06)
PROC: 3E033GC Introduction of Other Therapeutic Substance into Peripheral Vein, Percutaneous Approach (ICD-10-PCS; 2017-05-06)
DX: K57.92 Diverticulitis of intestine, part unspecified, without perforation or abscess without bleeding (principal)
CPT/HCPCS: 36415; 71046-TC-FY; 80053; 83690; 85025; 99283-25

== ENCOUNTER 2018-12-29 09:31 | Emergency (ER) | payer SELFPAY ==
[2018-12-29 09:40] VITALS: BP 130/80; PULSE 67; TEMP 97.9; BMI 38.7
--- NOTE | 2018-12-29 10:06 | PDOC ---
History of Present Illness - General Chief Complaint: Pain Stated Complaint: LT ABD PAIN Time Seen by Provider: 12/29/18 09:55 History Source: Patient Exam Limitations: No Limitations - History of Present Illness Travel History: No Initial Comments: 12/29/18 10:17 33 y/o male presents to ED with complaints of left abdominal painradiating to his left flank area patient also states for the past month. Urinary frequency without hematuria dysuria or fever. Patient states history of diverticulitis and unsure if this is the same but denies any change in bowel pattern or abdominal distention Timing/Duration: reports: getting worse Quality: reports: mild, moderate, cramping Abdominal Pain Onset Location: reports: LUQ Pain Radiation: reports: flank Activities at Onset: reports: none Aggravating Factors: improves with: None Alleviating Factors: improves with: None Past History - Travel Traveled outside of the country in the last 30 days: No Close contact w/someone who was outside of country & ill: No - Past Medical History Allergies/Adverse Reactions: Allergies Allergy/AdvReac Type Severity Reaction Status Date / Time No Known Allergies Allergy Verified 12/29/18 09:36 Home Medications: Ambulatory Orders NK [No Known Home Medication] 12/29/18 Anemia: No COPD: No GI Disorders: Yes (GERD) HTN: Yes Hypercholesterolemia: Yes - Surgical History Appendectomy: Yes - Immunization History Td Vaccination: Yes Immunization Up to Date: Yes - Psycho Social/Smoking Cessation Hx Smoking Status: Yes Smoking History: Former smoker Years of Tobacco Use: 14 Have you smoked in the past 12 months: Yes Number of Cigarettes Smoked Daily: 5 If you are a former smoker, when did you quit?: Information on smoking cessation initiated: Yes 'Breaking Loose' booklet given: 01/30/17 Hx Alcohol Use: Yes (stopped 09/2018) Drug/Substance Use Hx: No Substance Use Type: None Patient Lives Alone: No Lives with/in: spouse/SO Abd/GI Specific PMHX - Complaint Specific PMHX Diverticulitis: Yes GI Ulcer Disease: No Review of Systems - Review of Systems Able to Perform ROS?: Yes Constitutional: No: Symptoms Reported HEENTM: No: Symptoms Reported Respiratory: No: Symptoms reported Cardiac (ROS): No: Symptoms Reported ABD/GI: Yes: Abdominal cramping. No: Constipated, Diarrhea, Poor Appetite, Poor Fluid Intake, Vomiting : Yes: Frequency, Flank Pain Musculoskeletal: No: Symptoms Reported Integumentary: No: Symptoms Reported Neurological: No: Symptoms reported Hematologic/Lymphatic: No: Symptoms Reported *Physical Exam - Vital Signs Last Vital Signs Temp Pulse Resp BP Pulse Ox 97.9 F 67 18 130/80 99 12/29/18 09:31 12/29/18 09:31 12/29/18 09:31 12/29/18 09:31 12/29/18 09:31 - Physical Exam General Appearance: Yes: Nourished, Appropriately Dressed. No: Apparent Distress HEENT: positive: EOMI, ARABELLA. negative: Pale Conjunctivae Respiratory/Chest: positive: Lungs Clear, Normal Breath Sounds. negative: Respiratory Distress, Accessory Muscle Use Cardiovascular: positive: Regular Rhythm, Regular Rate. negative: Tachycardia Gastrointestinal/Abdominal: positive: Normal Bowel Sounds, Soft, Tenderness ( Left upper quadrant left flank). negative: Distended, Hernia, Mass Musculoskeletal: positive: CVA Tenderness (L) Extremity: positive: Normal Inspection Integumentary: positive: Normal Color, Warm, Moist Neurologic: positive: Normal Mood/Affect, Motor Strength 5/5 (Ambulatory) ED Treatment Course - LABORATORY CBC & Chemistry Diagram: 12/29/18 10:35 12/29/18 10:35 Medical Decision Making - Medical Decision Making 12/29/18 10:22 Chief complaint: Left upper quadrant pain for the past month patient unsure of diverticulitis versus urinary problem since he states also urinary frequency for the past few days exam: Left CVA tenderness left upper quadrant left flank tenderness. Vital signs stable. Plan: Urine, labs IV and will consider imaging once labs are reviewed 12/29/18 12:46 Laboratory Tests 12/29/18 12/29/18 12/29/18 10:00 10:35 10:35 WBC 9.1 Hgb 15.7 Hct 46.6 Neutrophils % 62.6 Sodium 138 Potassium 5.1 Chloride 106 Carbon Dioxide 26 Anion Gap 6 L BUN 10.5 Creatinine 1.0 Est GFR (CKD-EPI)AfAm 113.31 Est GFR (CKD-EPI)NonAf 97.76 Random Glucose 92 Calcium 9.1 Total Bilirubin 0.8 AST 41 H ALT 36 Alkaline Phosphatase 103 Total Protein 8.0 Albumin 4.1 Lipase Urine Ketones Negative Urine Nitrite Negative Ur Leukocyte Esterase Negative 12/29/18 10:35 WBC Hgb Hct Neutrophils % Sodium Potassium Chloride Carbon Dioxide Anion Gap BUN Creatinine Est GFR (CKD-EPI)AfAm Est GFR (CKD-EPI)NonAf Random Glucose Calcium Total Bilirubin AST ALT Alkaline Phosphatase Total Protein Albumin Lipase 92 Urine Ketones Urine Nitrite Ur Leukocyte Esterase 12/29/18 12:08 Patient continues with pain. Patient ordered for CT of the abdomen 12/29/18 12:50 CT shows no acute abnormality seen. No specific explanation for left-sided pain. Mild testicular disease with no evidence of diverticulitis or colitis seen. Small hiatal hernia noted 12/29/18 13:10 Patient will be given referral to offset plate maker with recommendations to avoid spicy greasy and fatty foods. Pt states feeling moderate improvement Discharge - Discharge Information Problems reviewed: Yes Clinical Impression/Diagnosis: Abdominal pain Condition: Improved - Follow up/Referral Referrals: Gini Pearson MD [Staff Physician] - - Patient Discharge Instructions Patient Printed Discharge Instructions: DI for Abdominal Pain-Adult Additional Instructions: Please avoid fatty, spicy, and greasy foods and follow-up with offset plate maker. If your symptoms worsen prior to follow-up please return to the ED. - Post Discharge Activity
[2018-12-29] MEDS ORDERED: KETOROLAC TROMETHAMINE 30 MG/1 ML VIAL IVPUSH ONE (10:10)
[2018-12-29] MEDS ORDERED: SODIUM CHLORIDE 1,000 ML IV STA (10:11)
[2018-12-29] MEDS ORDERED: KETOROLAC TROMETHAMINE 30 MG/1 ML VIAL ONE (10:43)
[2018-12-29 10:47] LABS: EOS % 3.8 % (0-4.5); HEMATOCRIT 46.6 % (35.4-49); HEMOGLOBIN 15.7 GM/dL (11.7-16.9); MCH 27.9 pg (25.7-33.7); MCHC 33.8 g/dl (32.0-35.9); MEAN CELL VOLUME 82.5 fl (80-96); MEAN PLT VOLUME 9.6 fl (7.5-11.1); MONO % 7.6 % (3.8-10.2); NEUT % 62.6 % (42.8-82.8); PLATELET COUNT 173 K/MM3 (134-434); RBC 5.64 M/mm3 (4.00-5.60); RDW 13.5 % (11.9-15.9); WHITE BLOOD COUNT 9.1 K/mm3 (4.0-10.0)
[2018-12-29 10:50] LABS: URINE APPEARANCE CLEAR; URINE BILIRUBIN NEGATIVE (NEGATIVE); URINE COLOR YELLOW; URINE GLUCOSE (UA) NEGATIVE (NEGATIVE); URINE KETONE NEGATIVE (NEGATIVE); URINE LEUK ESTERASE NEGATIVE (NEGATIVE); URINE NITRITE NEGATIVE (NEGATIVE); URINE PROTEIN NEGATIVE (NEGATIVE)
[2018-12-29 11:45] LABS: ALBUMIN 4.1 g/dl (3.4-5.0); BILIRUBIN,TOTAL 0.8 mg/dL (0.2-1); BLOOD UREA NITROGEN 10.5 mg/dL (7-18); CALCIUM 9.1 mg/dL (8.5-10.1); POTASSIUM 5.1 mmol/L (3.5-5.1)
--- NOTE | 2018-12-29 11:50 | PDOC ---
*Physical Exam - Vital Signs Last Vital Signs Temp Pulse Resp BP Pulse Ox 97.9 F 67 18 130/80 99 12/29/18 09:31 12/29/18 09:31 12/29/18 09:31 12/29/18 09:31 12/29/18 09:31 - Physical Exam General Appearance: Yes: Nourished HEENT: positive: ARABELLA Respiratory/Chest: positive: Lungs Clear, Normal Breath Sounds Cardiovascular: positive: Regular Rhythm, Regular Rate, S1, S2 Gastrointestinal/Abdominal: positive: Normal Bowel Sounds, Tender (llq ttp. no cva tenderness. ) Musculoskeletal: positive: Normal Inspection. negative: CVA Tenderness Integumentary: positive: Normal Color, Dry, Warm Neurologic: positive: Fully Oriented, Alert, Normal Mood/Affect ED Treatment Course - LABORATORY CBC & Chemistry Diagram: 12/29/18 10:35 12/29/18 10:35 - ADDITIONAL ORDERS Additional order review: Laboratory Results 12/29/18 12/29/18 12/29/18 10:35 10:35 10:00 Sodium 138 Potassium 5.1 Chloride 106 Carbon Dioxide 26 Anion Gap 6 L BUN 10.5 Creatinine 1.0 Est GFR (CKD-EPI)AfAm 113.31 Est GFR (CKD-EPI)NonAf 97.76 Random Glucose 92 Calcium 9.1 Total Bilirubin 0.8 AST 41 H ALT 36 Alkaline Phosphatase 103 Total Protein 8.0 Albumin 4.1 Lipase 92 Urine Color Yellow Urine Appearance Clear Urine pH 6.0 Ur Specific [place] 1.015 Urine Protein Negative Urine Glucose (UA) Negative Urine Ketones Negative Urine Blood Negative Urine Nitrite Negative Urine Bilirubin Negative Urine Urobilinogen 1.0 Ur Leukocyte Esterase Negative 12/29/18 10:35 RBC 5.64 H MCV 82.5 MCHC 33.8 RDW 13.5 MPV 9.6 Neutrophils % 62.6 Lymphocytes % 25.0 D Monocytes % 7.6 Eosinophils % 3.8 Basophils % 1.0 - Medications Given in the ED: ED Medications Discontinued Medications Generic Name Dose Route Start Last Admin Trade Name Freq PRN Reason Stop Dose Admin Sodium Chloride 1,000 mls @ 1,000 mls/hr 12/29/18 10:11 12/29/18 10:52 Normal Saline - IV 12/29/18 11:10 1,000 mls/hr ASDIR STA Administration Ketorolac Tromethamine 30 mg 12/29/18 10:10 12/29/18 10:51 Toradol Injection - IVPUSH 12/29/18 10:11 30 mg ONCE ONE Administration Medical Decision Making - Medical Decision Making 12/29/18 11:48 33 yo male h/o obesity, prior diverticulitis here with c/o left flank pain radiating to left abd/ groin. no h/o renal colic,k has been itnermittent for one month, becamse more constant last 4 days. does have associated n/v , last episode yesterday. all nonbloody nonbilious. no urinary complaints. no dysuria, or hematuria. no h/o renal colic. does have h/o loose watery stools with eating. no mod factors. no associated fever. no other complaints. on exam pt with mild llq ttp. no rebound no guarding. differential diverticultis uti pyeli, colitis. plan ct a/p labs. pt seen and examined in conjunction with RIAN Celis. agree with assessment and plan. 12/29/18 11:50
== END 2018-12-29 13:25 | disposition home or self-care (01) ==
LOC: JER 09:31
PROC: 3E0337Z Introduction of Electrolytic and Water Balance Substance into Peripheral Vein, Percutaneous Approach (ICD-10-PCS; principal; 2018-12-29)
PROC: 3E033GC Introduction of Other Therapeutic Substance into Peripheral Vein, Percutaneous Approach (ICD-10-PCS; 2018-12-29)
DX: R10.84 Generalized abdominal pain (principal); I10 Essential (primary) hypertension; E78.00 Pure hypercholesterolemia, unspecified; K21.9 Gastro-esophageal reflux disease without esophagitis; Z87.19 Personal history of other diseases of the digestive system; Z87.891 Personal history of nicotine dependence
CPT/HCPCS: 36415; 74176-TC; 80053; 81003; 83690; 85025; 87086; 99283-25; J7030

== ENCOUNTER 2020-05-23 20:12 | Emergency (ER) | payer OTHER ==
[2020-05-23 20:23] VITALS: BP 144/94; PULSE 72; TEMP 98.6; BMI 36.6
[2020-05-23] MEDS ORDERED: KETOROLAC TROMETHAMINE 30 MG/1 ML VIAL IM ONE (21:37)
[2020-05-23] MEDS ORDERED: LIDOCAINE 5% TOPICAL PATCH TP ONE (21:37)
[2020-05-23] MEDS ORDERED: KETOROLAC TROMETHAMINE 30 MG/1 ML VIAL ONE ×2 (21:45→21:49)
[2020-05-23] MEDS ORDERED: LIDOCAINE 5% TOPICAL PATCH ONE ×2 (21:45→21:48)
[2020-05-23] MEDS ORDERED: LIDOCAINE PATCH REMOVAL MC SCH (22:00)
== END 2020-05-23 22:46 | disposition home or self-care (01) ==
LOC: JER 20:12 → JERFT 20:12 → JER 22:46
PROC: 3E0333Z Introduction of Anti-inflammatory into Peripheral Vein, Percutaneous Approach (ICD-10-PCS; principal; 2020-05-23)
DX: M54.5 Low back pain (principal); S39.012A Strain of muscle, fascia and tendon of lower back, initial encounter
CPT/HCPCS: 99284-25

== ENCOUNTER 2020-06-18 10:26 | Emergency (ER) | payer OTHER ==
[2020-06-18] MEDS ORDERED: IBUPROFEN 400 MG TABLET (FP) PO ONE (10:36)
[2020-06-18] MEDS ORDERED: LIDOCAINE 5% TOPICAL PATCH TP ONE (10:38)
[2020-06-18 10:56] VITALS: BP 123/80; PULSE 66; TEMP 98.5; BMI 37.1
[2020-06-18] MEDS ORDERED: LIDOCAINE 5% TOPICAL PATCH ONE (10:59)
[2020-06-18] MEDS ORDERED: ACETAMINOPHEN 500 MG TABLET (FP) PO ONE (11:04)
[2020-06-18] MEDS ORDERED: ACETAMINOPHEN 500 MG TABLET (FP) ONE (11:07)
[2020-06-18] MEDS ORDERED: LIDOCAINE PATCH REMOVAL MC SCH (22:00)
== END 2020-06-18 11:33 | disposition home or self-care (01) ==
LOC: FER 10:26
DX: M54.5 Low back pain (principal)
CPT/HCPCS: 99284-25

== ENCOUNTER 2021-06-06 19:01 | Emergency (ER) | payer OTHER ==
[2021-06-06 19:25] VITALS: BP 136/91; PULSE 89; TEMP 99.2; BMI 36.3
[2021-06-06] MEDS ORDERED: KETOROLAC TROMETHAMINE 60 MG/2 ML VIAL IM ONE (19:41)
[2021-06-06] MEDS ORDERED: predniSONE 20 MG TABLET (UD) PO ONE (19:41)
[2021-06-06] MEDS ORDERED: predniSONE 20 MG TABLET (UD) ONE (19:45)
[2021-06-06] MEDS ORDERED: KETOROLAC TROMETHAMINE 60 MG/2 ML VIAL ONE (19:45)
== END 2021-06-06 20:07 | disposition home or self-care (01) ==
LOC: FER 19:01
PROC: 3E0233Z Introduction of Anti-inflammatory into Muscle, Percutaneous Approach (ICD-10-PCS; principal; 2021-06-06)
DX: M10.9 Gout, unspecified (principal)
CPT/HCPCS: 99284-25

== ENCOUNTER 2021-11-20 08:20 | Emergency (ER) | payer OTHER ==
[2021-11-20 08:35] VITALS: BP 127/76; PULSE 61; RESP 16; TEMP 97.9; BMI 35.5
[2021-11-20] MEDS ORDERED: KETOROLAC TROMETHAMINE 30 MG/1 ML VIAL IM ONE (08:39)
[2021-11-20] MEDS ORDERED: KETOROLAC TROMETHAMINE 30 MG/1 ML VIAL ONE (08:54)
== END 2021-11-20 09:51 | disposition home or self-care (01) ==
LOC: FER 08:20
PROC: 3E0233Z Introduction of Anti-inflammatory into Muscle, Percutaneous Approach (ICD-10-PCS; principal; 2021-11-20)
DX: S93.602A Unspecified sprain of left foot, initial encounter (principal); X50.0XXA Overexertion from strenuous movement or load, initial encounter
CPT/HCPCS: 73630-TC-LT; 96372; 99284-25

== ENCOUNTER 2021-11-26 05:21 | Emergency (ER) | payer OTHER ==
[2021-11-26 05:31] VITALS: BP 123/83; PULSE 69; RESP 20; TEMP 98.1; BMI 35.5
[2021-11-26] MEDS ORDERED: ACETAMINOPHEN 500 MG TABLET (FP) PO ONE (05:47)
[2021-11-26] MEDS ORDERED: ACETAMINOPHEN 325 MG TABLET (FP) ONE (05:51)
[2021-11-26 06:37] LABS: BASO % 1.1 % (0-2.0); HEMATOCRIT 44.5 % (35.4-49); HEMOGLOBIN 14.4 GM/dL (11.7-16.9); LYMPH % 21.5 % (8-40); MCHC 32.3 g/dl (32.0-35.9); MEAN CELL VOLUME 80.4 fl (80-96); MEAN PLT VOLUME 9.5 fl (7.5-11.1); MONO % 8.4 % (3.8-10.2); PLATELET COUNT 175 10^3/uL (134-434); RBC 5.54 M/mm3 (4.00-5.60); RDW 15.5 % (11.9-15.9); WHITE BLOOD COUNT 7.3 K/mm3 (4.0-10.0)
[2021-11-26 06:55] LABS: CALCIUM 8.9 mg/dL (8.5-10.1)
[2021-11-26 06:56] LABS: ALBUMIN 3.6 g/dl (3.4-5.0)
[2021-11-26 06:58] LABS: CREATININE 0.9 mg/dL (0.55-1.3)
[2021-11-26 07:00] LABS: BILIRUBIN,TOTAL 0.5 mg/dL (0.2-1); TOT PROT 7.1 g/dl (6.4-8.2)
[2021-11-26] MEDS ORDERED: KETOROLAC TROMETHAMINE 60 MG/2 ML VIAL IVPUSH ONE (08:06)
[2021-11-26] MEDS ORDERED: KETOROLAC TROMETHAMINE 15 MG/ML VIAL ONE (08:09)
== END 2021-11-26 10:08 | disposition home or self-care (01) ==
LOC: JER 05:21
PROC: 3E0333Z Introduction of Anti-inflammatory into Peripheral Vein, Percutaneous Approach (ICD-10-PCS; principal; 2021-11-26)
DX: M79.672 Pain in left foot (principal)
CPT/HCPCS: 36415; 73610-TC-LT-FY; 73630-TC-LT; 80053; 85025; 93971-TC; 99285-25

== ENCOUNTER 2021-12-30 15:52 | Emergency (ER) | payer OTHER ==
[2021-12-30 16:30] VITALS: BP 148/85; PULSE 92; RESP 18; TEMP 98.1; BMI 38.7
[2021-12-30] MEDS ORDERED: KETOROLAC TROMETHAMINE 30 MG/1 ML VIAL IM ONE (19:56)
[2021-12-30] MEDS ORDERED: KETOROLAC TROMETHAMINE 30 MG/1 ML VIAL ONE (20:16)
== END 2021-12-30 21:20 | disposition home or self-care (01) ==
LOC: JER 15:52
PROC: 3E0233Z Introduction of Anti-inflammatory into Muscle, Percutaneous Approach (ICD-10-PCS; principal; 2021-12-30)
DX: M25.462 Effusion, left knee (principal); M25.562 Pain in left knee
CPT/HCPCS: 73562-TC-LT-FY; 93971-TC; 96372; 99284-25

== ENCOUNTER 2022-05-02 09:55 | Emergency (ER) | payer OTHER ==
[2022-05-02 10:16] VITALS: BP 142/100; PULSE 76; RESP 16; TEMP 98.5; BMI 38.7
[2022-05-02] MEDS ORDERED: KETOROLAC TROMETHAMINE 30 MG/1 ML VIAL IM ONE (11:29)
[2022-05-02] MEDS ORDERED: ACETAMINOPHEN 500 MG TABLET (FP) PO ONE (11:29)
[2022-05-02] MEDS ORDERED: COLCHICINE 0.6 MG TAB PO ONE (11:29)
[2022-05-02] MEDS ORDERED: COLCHICINE 0.6 MG TAB ONE (11:38)
[2022-05-02] MEDS ORDERED: ACETAMINOPHEN 500 MG TABLET (FP) ONE (11:39)
[2022-05-02] MEDS ORDERED: KETOROLAC TROMETHAMINE 30 MG/1 ML VIAL ONE (11:39)
[2022-05-02] MEDS ORDERED: ALLOPURINOL 300 MG TABLET (FP) PO ONE (12:34)
== END 2022-05-02 13:33 | disposition home or self-care (01) ==
LOC: JERFT 09:55
PROC: 3E0233Z Introduction of Anti-inflammatory into Muscle, Percutaneous Approach (ICD-10-PCS; principal; 2022-05-02)
DX: M10.071 Idiopathic gout, right ankle and foot (principal)
CPT/HCPCS: 73630-TC-RT-FY; 96372; 99284-25

== ENCOUNTER 2022-07-11 01:43 | Emergency (ER) | payer OTHER ==
[2022-07-11 01:59] VITALS: BP 135/70; PULSE 75; RESP 18; TEMP 99; BMI 37.9
[2022-07-11] MEDS ORDERED: SODIUM CHLORIDE 0.9% 500 ML INFUS.BAG IV ONE (02:40)
[2022-07-11] MEDS ORDERED: FAMOTIDINE 20 MG/50 ML IVPB 20 MG/50 ML MG IVPB ONE ×2 (02:40→03:11)
[2022-07-11] MEDS ORDERED: ONDANSETRON 4 MG/2 ML VIAL IVPUSH ONE (02:40)
[2022-07-11] MEDS ORDERED: ONDANSETRON 4 MG/2 ML VIAL ONE (03:10)
[2022-07-11] MEDS ORDERED: ACETAMINOPHEN 1000 MG/100 ML BAG IVPB ONE (03:27)
[2022-07-11] MEDS ORDERED: ACETAMINOPHEN INJECTION 100 ML IVPB ONE (03:28)
[2022-07-11 04:38] LABS: BASO % 0.5 % (0-2.0); EOS % 1.4 % (0-4.5); HEMATOCRIT 46.2 % (35.4-49); HEMOGLOBIN 15.9 GM/dL (11.7-16.9); LYMPH % 18.1 % (8-40); MCHC 34.3 g/dl (32.0-35.9); MEAN CELL VOLUME 81.6 fl (80-96); MEAN PLT VOLUME 11.1 fl (7.5-11.1); MONO % 7.2 % (3.8-10.2); NEUT % 72.8 % (42.8-82.8); PLATELET COUNT 152 10^3/uL (134-434); RBC 5.66 M/mm3 (4.00-5.60); RDW 15.1 % (11.9-15.9)
[2022-07-11 05:16] LABS: POTASSIUM 3.8 mmol/L (3.5-5.1)
[2022-07-11 05:19] LABS: BLOOD UREA NITROGEN 8.1 mg/dL (7-18); CALCIUM 8.8 mg/dL (8.5-10.1)
[2022-07-11 05:20] LABS: ALBUMIN 3.8 g/dl (3.4-5.0)
[2022-07-11 05:22] LABS: CREATININE 0.9 mg/dL (0.55-1.3)
[2022-07-11 05:24] LABS: BILIRUBIN,TOTAL 0.8 mg/dL (0.2-1); TOT PROT 7.7 g/dl (6.4-8.2)
== END 2022-07-11 05:44 | disposition home or self-care (01) ==
LOC: JER 01:43
PROC: 3E033GC Introduction of Other Therapeutic Substance into Peripheral Vein, Percutaneous Approach (ICD-10-PCS; principal; 2022-07-11)
PROC: 3E033GC Introduction of Other Therapeutic Substance into Peripheral Vein, Percutaneous Approach (ICD-10-PCS; 2022-07-11)
PROC: 3E033GC Introduction of Other Therapeutic Substance into Peripheral Vein, Percutaneous Approach (ICD-10-PCS; 2022-07-11)
DX: R09.81 Nasal congestion (principal); M79.10 Myalgia, unspecified site; R11.2 Nausea with vomiting, unspecified; R68.83 Chills (without fever); R06.02 Shortness of breath; R05.9 Cough, unspecified; R19.7 Diarrhea, unspecified; Z20.822 Contact with and (suspected) exposure to COVID-19
CPT/HCPCS: 0241U-QW; 36415; 71046-TC-FY; 80053; 83690; 85025; 93005; 93010; 99285-25

== ENCOUNTER 2023-04-08 02:34 | Emergency (ER) | payer OTHER ==
[2023-04-08 02:50] VITALS: BP 138/92; PULSE 104; RESP 18; TEMP 98.4; BMI 41.9
[2023-04-08] MEDS ORDERED: COLCHICINE 0.6 MG TAB ONE (03:14)
[2023-04-08] MEDS: COLCHICINE 0.6 MG TAB PO ONE (03:18)
[2023-04-08] MEDS: INDOMETHACIN 50 MG CAPSULE PO ONE (03:23)
[2023-04-08 03:59] LABS: ALBUMIN 3.5 g/dl (3.4-5.0)
[2023-04-08 04:00] LABS: BILIRUBIN,DIRECT 0.2 mg/dL (0.0-0.2)
[2023-04-08 04:02] LABS: BILIRUBIN,TOTAL 0.7 mg/dL (0.2-1)
[2023-04-08 04:04] LABS: TOT PROT 7.1 g/dl (6.4-8.2)
== END 2023-04-08 04:37 | disposition home or self-care (01) ==
LOC: JER 02:34
DX: M10.9 Gout, unspecified (principal); M79.672 Pain in left foot; M72.2 Plantar fascial fibromatosis
CPT/HCPCS: 36415; 80076; 84550; 99283-25

== ENCOUNTER 2023-06-01 04:27 | Emergency (ER) | payer OTHER ==
[2023-06-01 04:34] VITALS: BP 121/83; PULSE 92; RESP 20; TEMP 98.2; BMI 35.2
[2023-06-01] MEDS ORDERED: KETOROLAC TROMETHAMINE 30 MG/1 ML VIAL ONE (04:52)
[2023-06-01] MEDS: KETOROLAC TROMETHAMINE 30 MG/1 ML VIAL IM ONE (04:55)
== END 2023-06-01 05:50 | disposition home or self-care (01) ==
LOC: JER 04:27
PROC: 3E0233Z Introduction of Anti-inflammatory into Muscle, Percutaneous Approach (ICD-10-PCS; principal; 2023-06-01)
DX: M25.522 Pain in left elbow (principal)
CPT/HCPCS: 73070-TC-LT-FY; 99284-25

== ENCOUNTER 2023-07-18 07:43 | Emergency (ER) | payer OTHER ==
[2023-07-18 08:08] VITALS: BP 122/75; PULSE 69; RESP 20; TEMP 98.3; BMI 31.9
[2023-07-18] MEDS ORDERED: KETOROLAC TROMETHAMINE 30 MG/1 ML VIAL ONE (08:41)
[2023-07-18] MEDS ORDERED: COLCHICINE 0.6 MG TAB ONE (08:42)
[2023-07-18] MEDS: COLCHICINE 0.6 MG CAP PO ONE (08:47)
[2023-07-18] MEDS: KETOROLAC TROMETHAMINE 30 MG/1 ML VIAL IM ONE (08:47)
[2023-07-18] MEDS ORDERED: ACETAMINOPHEN 500 MG TABLET (FP) ONE (10:08)
[2023-07-18] MEDS: ACETAMINOPHEN 500 MG TABLET (FP) PO ONE (10:11)
== END 2023-07-18 10:43 | disposition home or self-care (01) ==
LOC: JER 07:43
PROC: 3E023GC Introduction of Other Therapeutic Substance into Muscle, Percutaneous Approach (ICD-10-PCS; principal; 2023-07-18)
DX: M10.9 Gout, unspecified (principal); M25.571 Pain in right ankle and joints of right foot; M25.471 Effusion, right ankle
CPT/HCPCS: 73610-TC-RT-FY; 99284-25

== ENCOUNTER 2023-09-05 04:56 | Emergency (ER) | payer OTHER ==
[2023-09-05 05:08] VITALS: BP 116/61; PULSE 58; RESP 20; TEMP 97.9; BMI 30.7
[2023-09-05] MEDS ORDERED: predniSONE 10 MG TABLET (UD) ONE (05:28)
[2023-09-05] MEDS ORDERED: predniSONE 20 MG TABLET (UD) ONE (05:28)
[2023-09-05] MEDS: predniSONE 20 MG TABLET (UD) PO ONE (05:30)
== END 2023-09-05 05:34 | disposition home or self-care (01) ==
LOC: JER 04:56
DX: M10.9 Gout, unspecified (principal); M79.674 Pain in right toe(s)
CPT/HCPCS: 99283-25

== ENCOUNTER 2023-11-14 07:10 | Emergency (ER) | payer OTHER ==
[2023-11-14 07:16] VITALS: BP 134/88; PULSE 67; RESP 15; TEMP 97.9; BMI 29.7
[2023-11-14] MEDS ORDERED: KETOROLAC TROMETHAMINE 30 MG/1 ML VIAL ONE (07:37)
[2023-11-14] MEDS ORDERED: COLCHICINE 0.6 MG TAB ONE (07:39)
[2023-11-14] MEDS: COLCHICINE 0.6 MG TAB PO ONE (07:49)
[2023-11-14] MEDS: KETOROLAC TROMETHAMINE 30 MG/1 ML VIAL IM ONE (07:49)
== END 2023-11-14 07:59 | disposition home or self-care (01) ==
LOC: JER 07:10
PROC: 3E0133Z Introduction of Anti-inflammatory into Subcutaneous Tissue, Percutaneous Approach (ICD-10-PCS; principal; 2023-11-14)
DX: M10.9 Gout, unspecified (principal)
CPT/HCPCS: 73562-TC-LT-FY; 99284-25

== ENCOUNTER → 2023-11-15 | Emergency (ER) | payer OTHER ==
[~2023-11-15] MED LIST: FAMOTIDINE 20 MG/50 ML IVPB 20 MG/50 ML MG IVPB ONE; methylPREDNISolone NA SUCC 125 MG/2 ML VIAL ONE
[2023-11-15 06:34] VITALS: BP 122/83; PULSE 70; RESP 16; TEMP 97.4; BMI 29.7
[2023-11-15] MEDS: methylPREDNISolone NA SUCC 125 MG/2 ML VIAL IVPUSH ONE (06:42)
[2023-11-15 07:00] LABS: BASO % 0.7 % (0-2.0); EOS % 2.9 % (0-4.5); HEMATOCRIT 43.2 % (35.4-49); HEMOGLOBIN 14.3 GM/dL (11.7-16.9); LYMPH % 21.4 % (8-40); MCH 27.2 pg (25.7-33.7); MCHC 33.1 g/dl (32.0-35.9); MEAN CELL VOLUME 82.2 fl (80-96); MEAN PLT VOLUME 9.9 fl (7.5-11.1); MONO % 5.9 % (3.8-10.2); NEUT % 69.1 % (42.8-82.8); PLATELET COUNT 169 10^3/uL (134-434); RBC 5.25 M/mm3 (4.00-5.60); RDW 14.8 % (11.9-15.9); WHITE BLOOD COUNT 8.5 K/mm3 (4.0-10.0)
[2023-11-15 07:27] LABS: POTASSIUM 3.8 mmol/L (3.5-5.1)
[2023-11-15 07:29] LABS: ALBUMIN 3.7 g/dl (3.4-5.0); CALCIUM 8.9 mg/dL (8.5-10.1)
[2023-11-15 07:30] LABS: BLOOD UREA NITROGEN 9.8 mg/dL (7-18)
[2023-11-15 07:33] LABS: CREATININE 0.8 mg/dL (0.55-1.3)
[2023-11-15 07:34] LABS: BILIRUBIN,TOTAL 0.7 mg/dL (0.2-1); TOT PROT 6.9 g/dl (6.4-8.2)
[2023-11-15] MEDS: FAMOTIDINE 20 MG/50 ML IVPB 20 MG/50 ML MG IVPB ONE (07:59)
== END | disposition home or self-care (01) ==
LOC: JER 06:10
PROC: 3E033GC Introduction of Other Therapeutic Substance into Peripheral Vein, Percutaneous Approach (ICD-10-PCS; principal; 2023-11-15)
PROC: 3E033GC Introduction of Other Therapeutic Substance into Peripheral Vein, Percutaneous Approach (ICD-10-PCS; 2023-11-15)
PROC: 3E033GC Introduction of Other Therapeutic Substance into Peripheral Vein, Percutaneous Approach (ICD-10-PCS; 2023-11-15)
DX: J02.9 Acute pharyngitis, unspecified (principal)
CPT/HCPCS: 36415; 70360-TC-FY; 80053; 85025; 87651; 99284-25

== ENCOUNTER 2023-11-24 12:30 | Emergency (ER) | payer OTHER ==
[2023-11-24 12:37] VITALS: BP 142/94; PULSE 90; RESP 18; TEMP 98.8; BMI 29.7
[2023-11-24] MEDS ORDERED: predniSONE 10 MG TABLET (UD) ONE (13:18)
[2023-11-24] MEDS ORDERED: ACETAMINOPHEN 500 MG TABLET (FP) ONE (13:18)
[2023-11-24] MEDS ORDERED: predniSONE 20 MG TABLET (UD) ONE (13:18)
[2023-11-24] MEDS: ACETAMINOPHEN 500 MG TABLET (FP) PO ONE (13:21)
[2023-11-24] MEDS: predniSONE 20 MG TABLET (UD) PO ONE (13:21)
== END 2023-11-24 13:43 | disposition home or self-care (01) ==
LOC: JERFT 12:30
DX: M25.562 Pain in left knee (principal); M10.9 Gout, unspecified
CPT/HCPCS: 99283-25